=== PATIENT | female | born 1995 | race Caucasian/White ===

== ENCOUNTER 2025-04-22 11:04 | Emergency (ER) | payer OTHER ==
[~2025-04-22] VITALS: Ht 162.6 cm; Wt 82.6 kg
[2025-04-22 11:11] VITALS: BP 114/68; PULSE 84; TEMP 97.8; O2SAT 98
[2025-04-22 11:52] VITALS: RESP 16
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
== END 2025-04-22 12:16 | disposition home or self-care (01) ==
LOC: ER 11:05
DX: S09.90XA Unspecified injury of head, initial encounter (principal); Z88.0 Allergy status to penicillin; Z88.1 Allergy status to other antibiotic agents; Z88.2 Allergy status to sulfonamides; W50.1XXA Accidental kick by another person, initial encounter; Y93.89 Activity, other specified; Y92.89 Other specified places as the place of occurrence of the external cause; Y99.8 Other external cause status
CPT/HCPCS: 99282